=== PATIENT | male | born 1945 | race Caucasian/White ===

== ENCOUNTER 2025-05-07 12:19 | Inpatient (IN) | payer BC, OTHER ==
[~2025-05-07] VITALS: Ht 177.8 cm; Wt 80.7 kg
[2025-05-07] MEDS: IV NS 0.9% 1,000 ML BAG IV ONE (12:37)
[2025-05-07 12:40] LABS: PLATELET COUNT (AUTO) 181 K/uL (150-450); RED BLOOD CELL COUNT(AUTO) 4.63 MIL/uL (4.5-6.0); RED CELL DISTRIBUTION WIDTH 13.6 % (11.5-15.0); WHITE BLOOD COUNT (AUTO) 5.4 K/uL (4.3-11.0)
[2025-05-07 13:06] LABS: ASPARTATE AMINOTRANSFERASE 16 U/L (15-37); CALCIUM, SERUM 9.2 mg/dL (8.5-10.1); CREATININE 1.0 mg/dL (0.6-1.3); SODIUM SERUM 126 mmol/L (136-145); TOTAL PROTEIN, SERUM 7.1 g/dL (6.4-8.2); UREA NITROGEN, BLOOD 51 mg/dL (7-18)
[2025-05-07] MEDS ORDERED: INSULIN REGULAR, HUMAN 100 UNIT/ML 10 ML VIAL ONE (14:15)
[2025-05-07] MEDS: INSULIN REGULAR, HUMAN 100 UNIT/ML 10 ML VIAL SQ ONE (14:19)
[2025-05-07 14:38] VITALS: BP 156/59; TEMP 97.6; O2SAT 97
[2025-05-07 16:12] VITALS: BP 155/60; TEMP 97.8; O2SAT 99
[2025-05-07] MEDS ORDERED: ONDANSETRON HCL/PF 4 MG/2 ML VIAL IVP PRN (17:30)
[2025-05-07] MEDS ORDERED: DEXTROSE 50%-WATER 50 ML DISP.SYRIN IV PRN (17:30)
[2025-05-07] MEDS ORDERED: MAG HYDROX/AL HYDROX/SIMETH 30 ML UDC PO PRN (17:30)
[2025-05-07] MEDS ORDERED: ACETAMINOPHEN 325 MG TABLET PO PRN (17:30)
[2025-05-07] MEDS ORDERED: Z GUARD REMEDY 4 OZ OINT TP PRN (17:30)
[2025-05-07] MEDS: BLOOD SUGAR DIAGNOSTIC 1 EACH STRIP IN SCH (17:41)
[2025-05-07] MEDS: IV LR 1000 ML 1,000 ML IV SCH (17:41)
[2025-05-07] MEDS: ENOXAPARIN SODIUM 40 MG/0.4 ML DISP.SYRIN SQ SCH (17:43)
[2025-05-07] MEDS: INSULIN REGULAR, HUMAN 100 UNIT/ML 3 ML VIAL SQ PRN (17:43)
[2025-05-07 20:00] VITALS: BP 120/55; TEMP 98.5; O2SAT 98
[2025-05-08] VITALS: BP 128/55; TEMP 98; O2SAT 98
[2025-05-08 04:00] VITALS: BP 144/51; TEMP 98.5; O2SAT 99
[2025-05-08 06:48] LABS: PLATELET COUNT (AUTO) 170 K/uL (150-450); RED BLOOD CELL COUNT(AUTO) 4.53 MIL/uL (4.5-6.0); RED CELL DISTRIBUTION WIDTH 13.6 % (11.5-15.0); WHITE BLOOD COUNT (AUTO) 4.2 K/uL (4.3-11.0)
[2025-05-08 07:02] LABS: ASPARTATE AMINOTRANSFERASE 16.0 U/L (15-37); CALCIUM, SERUM 8.8 mg/dL (8.5-10.1); CREATININE 0.9 mg/dL (0.6-1.3); PHOSPHORUS 3.9 mg/dL (2.5-4.9); SODIUM SERUM 138.0 mmol/L (136-145); TOTAL PROTEIN, SERUM 6.2 g/dL (6.4-8.2); UREA NITROGEN, BLOOD 34.0 mg/dL (7-18)
[2025-05-08 07:05] LABS: IRON, SERUM 50.0 ug/dl (50-175)
[2025-05-08 07:23] LABS: APPEARANCE,URINE CLEAR (CLEAR); BLOOD, URINE TRACE-INTA Ery/uL (NEGATIVE); LEUKOCYTE ESTERASE ,URINE NEGATIVE (NEGATIVE); NITRITE, URINE NEGATIVE (NEGATIVE); UGLUCOSE 3+ mg/dL (NEGATIVE)
[2025-05-08 08:01] LABS: ADD URINE CULTURE NO; SQUAMOUS EPITHELIAL CELL,UR Few /HPF (None Seen)
[2025-05-08] MEDS: PANTOPRAZOLE 40 MG TABLET.DR PO SCH (08:02)
[2025-05-08 08:20] VITALS: BP 143/58; TEMP 97.9; O2SAT 98
[2025-05-08 12:20] VITALS: BP 153/56; TEMP 97.9; O2SAT 98
[2025-05-08 16:20] VITALS: BP 143/66; TEMP 97.7; O2SAT 99
[2025-05-08] MEDS: BLOOD SUGAR DIAGNOSTIC 1 EACH STRIP IN SCH (17:51)
[2025-05-08] MEDS ORDERED: DEXTROSE 50%-WATER 50 ML DISP.SYRIN IV PRN (18:00)
[2025-05-08] MEDS: THERAHONEY GEL 1.5 OZ TUBE TP SCH (18:51)
[2025-05-08 20:00] VITALS: BP 139/59; TEMP 97.3; O2SAT 96
[2025-05-08] MEDS: INSULIN GLARGINE, 100 UNIT/ML CARTRIDGE SQ SCH (23:32)
[2025-05-08] MEDS: *INSULIN REGULAR(HUMULIN R)HUM 100 UNIT/ML VIAL SQ PRN (23:47)
[2025-05-09] VITALS: BP 148/64; TEMP 97.5; O2SAT 97
[2025-05-09 04:00] VITALS: BP 139/54; TEMP 97.3; O2SAT 96
[2025-05-09 07:23] LABS: PLATELET COUNT (AUTO) 160 K/uL (150-450); RED BLOOD CELL COUNT(AUTO) 4.84 MIL/uL (4.5-6.0); RED CELL DISTRIBUTION WIDTH 13.8 % (11.5-15.0); WHITE BLOOD COUNT (AUTO) 3.7 K/uL (4.3-11.0)
[2025-05-09 07:30] LABS: CALCIUM, SERUM 8.8 mg/dL (8.5-10.1); CREATININE 0.7 mg/dL (0.6-1.3); PHOSPHORUS 3.1 mg/dL (2.5-4.9); SODIUM SERUM 138.0 mmol/L (136-145); UREA NITROGEN, BLOOD 18.0 mg/dL (7-18)
[2025-05-09] MEDS: INSULIN LISPRO/ASPART 100 UNIT/ML CARTRIDGE SQ SCH (07:45)
[2025-05-09 08:00] VITALS: BP 152/84; TEMP 98.1; O2SAT 96
[2025-05-09] MEDS ORDERED: AMLO5TAB4 PO (12:59)
[2025-05-09] MEDS ORDERED: LISI20TA30 PO (12:59)
[2025-05-09] MEDS ORDERED: COLL30OI TP (12:59)
[2025-05-09] MEDS ORDERED: INSU100I14 SQ (12:59)
[2025-05-09] MEDS ORDERED: CLOP75TA15 PO (12:59)
[2025-05-09] MEDS ORDERED: INSU100V7 SQ (12:59)
[2025-05-09] MEDS: INSULIN REGULAR, HUMAN 100 UNIT/ML 3 ML VIAL SQ PRN (13:01)
[2025-05-10] MEDS ORDERED: COLL30OI TP (13:40)
[2025-05-10] MEDS ORDERED: INSU100C10 SQ (13:40)
== END 2025-05-09 18:11 | disposition home or self-care (01) | DRG 638 ==
LOC: ER 12:22 → TELE1 14:22 → MEDSG1 05-09 10:01
PROVIDERS: ADMIT Nurse Practitioner Acute Care; ATTEND Nurse Practitioner Acute Care
DX: E11.65 Type 2 diabetes mellitus with hyperglycemia (principal); E87.20 Acidosis, unspecified; L97.322 Non-pressure chronic ulcer of left ankle with fat layer exposed; L97.412 Non-pressure chronic ulcer of right heel and midfoot with fat layer exposed; N17.9 Acute kidney failure, unspecified; E86.0 Dehydration; G25.0 Essential tremor; E78.5 Hyperlipidemia, unspecified; E86.1 Hypovolemia; I10 Essential (primary) hypertension; Z86.73 Personal history of transient ischemic attack (TIA), and cerebral infarction without residual deficits; Z95.2 Presence of prosthetic heart valve; Z20.822 Contact with and (suspected) exposure to COVID-19; R53.1 Weakness; E11.40 Type 2 diabetes mellitus with diabetic neuropathy, unspecified; E11.621 Type 2 diabetes mellitus with foot ulcer; R53.81 Other malaise
CPT/HCPCS: 36415; 71045-TC; 80048-TC; 80053-TC; 80076-TC; 81001; 82010-TC; 82962-TC; 83540-TC; 83735-TC; 84100-TC; 84443-TC; 84484-TC; 85025-TC; 93307-TC; 97112-TC; 97116-TC; 97530-TC; 97535-TC; A4223; A6213; A6253; A6254; G0378; J1650; J1815; J7030; J7120